=== PATIENT | female | born 1975 ===

== ENCOUNTER 2020-12-15 09:57 | Outpatient (REF) | payer BC, SELFPAY ==
--- NOTE | ~2020-12-15 | XR_ITS ---
EXAMINATION: XR CHEST CLINICAL INFORMATION: Preprocedural evaluation COMPARISON: None TECHNIQUE: 2 views of the chest were obtained. FINDINGS: No significant abnormality is noted involving the heart, lungs, mediastinum, bony thorax or soft tissues. XR/XR chest 2V IMPRESSION: Unremarkable chest examination.
[2020-12-15 11:15] LABS: MANUAL DIFF FLAG NO
[2020-12-15 11:28] LABS: Basophils Percent Auto 0.8 % (0-2); Eosinophils Percent Auto 0.4 % (0-4); Hematocrit 46.3 % (37-47); Hemoglobin 14.9 g/dl (12.0-16.0); Imm Gran Abs Auto 0.01 X10*3/uL (0.00-0.03); Imm Gran Pct Auto 0.2 % (0.0-0.4); Lymphocytes Absolute Auto 1.7 X10*3/uL (1.2-4.9); Lymphocytes Percent Auto 34.7 % (20-40); Mean Corpuscular HGB Conc 32.2 g/dl (31.0-35.0); Mean Corpuscular Hemoglobin 31.2 pg (27.0-33.0); Mean Corpuscular Volume 97.1 fL (80-98); Mean Platelet Volume 12.4 fL (9.4-12.3); Monocytes Absolute Auto 0.4 X10*3/uL (0.1-1.2); Monocytes Percent Auto 7.8 % (2-11); Neutrophils Absolute Auto 2.8 X10*3/uL (2.0-8.3); Neutrophils Percent Auto 56.1 % (45-73); Platelet Count 184 X10*3/uL (160-400); Red Blood Count 4.77 X10*6/uL (4.20-5.50); Red Cell Distribution Width 12.2 % (11.0-16.0)
[2020-12-15 11:37] LABS: Prothrombin Time 11.8 SEC (10.8-13.0)
[2020-12-15 11:38] LABS: Glucose Urine UA NEG (NEG); Leukocyte Esterase Urine NEG (NEG); Nitrite Urine NEG (NEG); Urine Blood NEG (NEG); Urine Ketones NEG (NEG); Urine Protein NEG (NEG-TRACE)
[2020-12-15 11:39] LABS: Partial Thromboplastin Time 32.4 SEC (24.1-38.0)
[2020-12-15 11:42] LABS: Appearance Urine CLEAR; Color Urine YELLOW
[2020-12-15 11:59] LABS: HCG Quantitative < 2 mIU/mL
[2020-12-15 12:20] LABS: Alanine Aminotransferase 26 U/L (0-31); Albumin Level 4.6 g/dL (3.5-5.0); Alkaline Phosphatase 55 U/L (39-117); Anion Gap 12 (12-20); Aspartate Amino Transferase 27 U/L (5-31); Bilirubin Total 0.8 mg/dL (0.0-1.0); Blood Urea Nitrogen 16 mg/dL (9-16); Calcium 9.1 mg/dL (8.4-10.2); Carbon Dioxide 27 mmol/L (22-29); Chloride 105 mmol/L (96-108); Estimated Glomerular Filt Rate > 60; Glucose Random 85 mg/dL (60-115); Potassium 4.4 mmol/L (3.3-5.1); Sodium 140 mmol/L (135-145); Total Protein 6.9 g/dL (6.5-8.0)
[2020-12-15 12:34] LABS: Squamous Epithelial Cell Urine 2+ /LPF; WBC Urine 0-2 /HPF (0-4)
[2020-12-16 08:44] LABS: HIV AB/AG Nonreactive (Nonreactive); HIV Num 1 0.04 S/CO (0.00-0.99)
== END 2020-12-15 09:58 | disposition home or self-care (01) ==
LOC: HO.HMGCX 09:57
PROVIDERS: PCP Nurse Practitioner Family; Visit Provider Nurse Practitioner Family
DX: Z01.818 Encounter for other preprocedural examination (principal)
CPT/HCPCS: 36415; 71046; 80053; 81001; 84702; 85025; 85610; 85730; 87389

== ENCOUNTER 2020-12-19 14:46 | Outpatient (REF) | payer BC, SELFPAY ==
--- NOTE | ~2020-12-19 | MM_ITS ---
EXAMINATION: MM SCREENING DIGITAL BREAST TOMOSYNTHESIS, BILATERAL CLINICAL INFORMATION: Screening. Asymptomatic. The lifetime risk of breast cancer based on the Tyrer-Cuzick Model is 8%. COMPARISON: Mammography: 05/01/2019; outside mammography 05/01/2017, 04/02/2016 ([facility]). TECHNIQUE: Digital breast tomosynthesis is performed in both the craniocaudal and mediolateral oblique views along with computer-aided detection (CAD). Synthesized 2D images are generated from the tomosynthesis. Additional right exaggerated CC view is provided. FINDINGS: There are scattered areas of fibroglandular density (ACR BI-RADS breast composition Category b). There are no significant masses, abnormal calcifications, or other abnormalities. Parenchymal pattern is similar to prior studies. No significant changes. MM/MM tomosynthesis screening BI IMPRESSION: No mammographic evidence of malignancy. ASSESSMENT: BI-RADS 1: Negative RECOMMENDATION: Routine annual mammography screening. This patient's information was entered into a reminder system with a target due date for their next mammogram.
== END 2020-12-19 14:47 | disposition home or self-care (01) ==
LOC: HO.MAMMO 14:46
PROVIDERS: Visit Provider Nurse Practitioner Family
DX: Z12.31 Encounter for screening mammogram for malignant neoplasm of breast (principal)
CPT/HCPCS: 77063; 77067

== ENCOUNTER 2021-07-27 09:05 | Outpatient (REF) | payer BC, SELFPAY ==
--- NOTE | 2021-07-27 09:14 | EMG_ITS ---
Bilateral median and ulnar motor and sensory studies were performed. Bilateral radial sensory studies were performed and paraspinal muscles were tested with needle. IMPRESSION: 1. [id number] bilateral median neuropathy across carpal tunnel. 2. Mild bilateral ulnar neuropathy across cubital tunnel. MD JASBIR Cortés/BRIAN / [id number]
== END 2021-07-27 09:06 | disposition home or self-care (01) ==
LOC: HO.NEURO 09:05
PROVIDERS: PCP Nurse Practitioner Family; Visit Provider Nurse Practitioner Family
DX: G56.00 Carpal tunnel syndrome, unspecified upper limb (principal)
CPT/HCPCS: 95886; 95911

== ENCOUNTER → 2021-08-29 14:16 | Outpatient (BNVA) | payer BC, SELFPAY | PROVIDERS: PCP Nurse Practitioner Family; Visit Provider Orthopaedic Surgery | DX: G56.03 Carpal tunnel syndrome, bilateral upper limbs (principal) | CPT/HCPCS: J1100 ==

== ENCOUNTER 2023-08-22 13:42 | Outpatient (AMB) | payer OTHER, SELFPAY ==
--- NOTE | 2023-08-22 13:49 | AM.OFFWIN_ITS ---
Intake Vital Signs 08/22/23 14:06 Height 5 ft 2 in Weight 150 lb BMI 27.4 BP 108/60 Blood Pressure Location Rt brachial Position Sitting Pulse 77 Pulse Source Pulse Oximeter Temp 98.4 F Temp Source Oral Pulse Oximetry (%) 97 Oxygen Delivery Method Room Air Intake Visit Reasons: EP sinus headache chills over a month Intake Note: Pt is here c/o feeling sick for one month. Pt states she has had on and off fevers for two weeks. Pt also has c/o runny nose, and headache. Patient Tobacco Use Status: Never used Tobacco Allergies No Known Allergies Allergy (Verified 08/22/23 13:49) Medication List - Last Reconciled 08/22/23 by Tarsha Earl NP cetirizine (Zyrtec) 10 mg PO DAILY PRN fluticasone propionate 50 mcg/actuation (Flonase Allergy Relief) 1 spray intranasal BID Do you need a note to return to daycare/school/sports/work: No HPI HPI Comments History of Present Illness Details 48 y/o female patient who presents to [facility] in clinic with c/o URI symptoms x 2 months. Symptoms have been on/off. Reports nasal congestion and sinus headaches. Denies fevers, chills, nausea or vomiting. Reports good appetite. Denies SOB, Chest pains or wheezing. She has been taking Tamiflu OTC with no relief. 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 Review of Systems Const All systems reviewed & are unremarkable except as noted in HPI and below Physical Exam Vital Signs: Last Vital Signs Temp 98.4 F 08/22/23 14:06 Pulse 77 08/22/23 14:06 BP 108/60 08/22/23 14:06 Pulse Ox 97 08/22/23 14:06 Oxygen Delivery Method Room Air 08/22/23 14:06 BMI result Body Mass Index 27.4 Const General: comfortable and no acute distress HEENT Head: Yes normal to inspection and Yes normocephalic Ears: external ears normal and TM's normal bilaterally General nose exam: Abnormal mucous membranes and turbinates present boggy and erythematous and Nasal discharge present Face and sinus: Yes sinuses nontender Mouth: oropharynx normal and moist mucous membranes Throat: Yes posterior oropharynx normal and Yes uvula midline Resp Effort & Inspection: normal respiratory effort Auscultation: clear to auscultation bilaterally Cardio Rate: regular rate Rhythm: regular rhythm Assessment & Plan Assessment & Plan (1) Allergic rhinitis: Code(s): J30.9 - Allergic rhinitis, unspecified Qualifiers: Allergic rhinitis seasonality: seasonal Allergic rhinitis trigger: unspecified Qualified Code(s): J30.2 - Other seasonal allergic rhinitis Plan: - Take medications as prescribed. - Avoid resp triggers. Medications: New fluticasone propionate 50 mcg/actuation (Flonase Allergy Relief) Administer 1 spray into each nostril twice a day 1 spray intranasal BID 16 grams 0RF J30.2 - Other seasonal allergic rhinitis cetirizine (Zyrtec) 10 mg PO DAILY PRN 30 tabs 0RF allergy symptoms J30.2 - Other seasonal allergic rhinitis Coding Level of Care Code Est Pt Level 3 (88435) Diagnoses Seasonal allergic rhinitis, unspecified trigger J30.2 Allergic rhinitis seasonality: seasonal Allergic rhinitis trigger: unspecified Time Spent (min) 15
[2023-08-22 14:06] VITALS: BP 108/60; PULSE 77; TEMP 36.9; O2SAT 97; BMI 27.4
== END 2023-08-22 14:18 | disposition home or self-care (01) ==
PROVIDERS: PCP Nurse Practitioner Family; Visit Provider Nurse Practitioner Family
DX: J30.2 Other seasonal allergic rhinitis (principal)
CPT/HCPCS: 99213

== ENCOUNTER 2023-10-16 14:35 | Outpatient (AMB) | payer OTHER, SELFPAY ==
--- NOTE | 2023-10-16 14:48 | A.OFFVIS_ITS ---
Intake Vital Signs 10/16/23 14:52 Height 5 ft 2 in Weight 150 lb BMI 27.4 Handedness Right Intake Visit Reasons: OV-B/L hand CTS injection-last injection 08/29/21 Intake Note: Aaron 48 yr old right hand dominant female presents today for a follow up visit for bilateral hand CTS s/p left hand CTS injection from 08/29/21. States injection gave her 1 year + of relief. Patient would like to discuss about repeating the injections and getting some medication to helo with the numbness. She expresses that her left hand is worse than the right. EMG done in 2021. Allergies No Known Allergies Allergy (Verified 10/16/23 14:51) HPI OV-B/L hand CTS injection-last injection 08/29/21 HPI Details Aaron is a 48 year old right hand dominant woman who returns to discuss her bilateral carpal tunnel syndrome. She complains of numbness in the thumb, index, and middle fingers bilaterally. Her numbness is constant in her left thumb, and intermittent but daily in the left index & middle fingers, as well as the thumb, index, and middle fingers of her right hand. She denies any small finger numbness. She was last seen on 08/29/21 and received a left carpal tunnel injection, which she says gave her good relief for 1+ years. 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 Review of Systems Const All systems reviewed & are unremarkable except as noted in HPI and below Physical Exam Vital Signs: BMI result Body Mass Index 27.4 Const General: no acute distress and alert Orientation/consciousness: patient oriented x3 Neuro General: patient oriented x3 Extrem Other: Evaluation of Bilateral Upper Extremity: The patient is alert, oriented, and in no acute distress Neuro: Dense numbness in the left thumb, normal sensation in the left index & middle fingers today in clinic Normal sensation in the median nerve distribution of the right side today in clinic Normal sensation in the ulnar nerve distribution bilaterally today in clinic No thenar or intrinsic wasting Good APB muscle belly firing and good finger cross Vascular: Cap refill brisk ROM: She can make a fist and extend all her digits No locking or catching Nerve Conduction Study: IMPRESSION: 1. [id number] bilateral median neuropathy across carpal tunnel. 2. Mild bilateral ulnar neuropathy across cubital tunnel. Taniya Eisenberg MD 07/27/2021 Psych Appearance: grossly normal Affect: normal affect Attitude: cooperative Assessment & Plan Assessment & Plan (1) Carpal tunnel syndrome of left wrist: Code(s): G56.02 - Carpal tunnel syndrome, left upper limb (2) Carpal tunnel syndrome of right wrist: Code(s): G56.01 - Carpal tunnel syndrome, right upper limb (3) Cubital tunnel syndrome on left: Code(s): G56.22 - Lesion of ulnar nerve, left upper limb (4) Cubital tunnel syndrome on right: Code(s): G56.21 - Lesion of ulnar nerve, right upper limb Plan Assessment & Plan: 1. Left carpal tunnel syndrome, mild-moderate, S/P injection Date of injection: 08/29/21 With dense numbness in the thumb Symptoms intermittent, but daily, worse at night in the index & middle fingers I educated her about this condition I discussed operative and non-operative treatment options I explained that I believe she needs surgery rather than an injection. The patient would like to proceed with surgery, beginning with the left hand The risks and benefits of operative treatment were discussed with the patient and the patient wishes to proceed with surgery. These risks include, but are not limited to risk of damage to blood vessels, nerves, tendons, infection, recurrence, incomplete relief of preoperative symptoms, persistent pain, possible need for further surgery and the risks associated with regional blocks and anesthesia. The plan is to take the patient to the operating room sometime in the next few weeks for the following procedures: 1. Left carpal tunnel release, under local All of the preoperative paperwork including the consent was reviewed today. All the patient's questions were answered. The patient understands that they will be contacted by our information security manager soon to schedule this procedure. 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 She denies Diabetes, blood thinners, asthma, heart, lung, kidney issues 2. Right carpal tunnel syndrome, mild-moderate Symptoms intermittent, but daily, worse at night 3. Left cubital tunnel syndrome, mild 4. Right cubital tunnel syndrome, mild No complaints at this time Scribed for Kimberli Rodriguez MD by David Miller, medical transcription radiology, on 10/16/23 at 3:00 PM, EST. Coding Level of Care Code Est Pt Level 4 (02931) Diagnoses Carpal tunnel syndrome of left wrist G56.02 Carpal tunnel syndrome of right wrist G56.01 Cubital tunnel syndrome on left G56.22 Cubital tunnel syndrome on right G56.21
[2023-10-16 14:52] VITALS: BMI 27.4
== END 2023-10-16 15:16 | disposition home or self-care (01) ==
PROVIDERS: PCP Nurse Practitioner Family; Visit Provider Orthopaedic Surgery
DX: G56.03 Carpal tunnel syndrome, bilateral upper limbs (principal); G56.23 Lesion of ulnar nerve, bilateral upper limbs
CPT/HCPCS: 99214

== ENCOUNTER → 2023-10-16 14:35 | Outpatient (BNVA) | payer OTHER, SELFPAY | PROVIDERS: PCP Nurse Practitioner Family; Visit Provider Orthopaedic Surgery ==

== ENCOUNTER 2023-11-20 08:07 | Outpatient (AMB) | payer OTHER, SELFPAY ==
--- NOTE | 2023-11-20 08:08 | MHC.PC.OV ---
Vital Signs 11/20/23 08:13 Height 5 ft 2 in Weight 156 lb BMI 28.5 BP 118/80 Blood Pressure Location Lt brachial Position Sitting Pulse 78 Pulse Source Pulse Oximeter Pulse Oximetry (%) 98 Oxygen Delivery Method Room Air Intake Visit Reasons: Numbness, joints ache, cramps Intake Note: Patient here to discuss body pain, she states bilat hands, arm, leg and feet. Allergies No Known Allergies Allergy (Verified 11/20/23 08:14) Medication List - Last Reconciled 11/20/23 by RADHA Mcginnis No Known Home Meds Tobacco use date assessed: 11/20/23 Dental Screening Dental Screen Date: 11/20/23 Did you have a dental visit in the last 12 months?: Yes Did you have a dental problem in the last 6 months where you did not have access to dental care?: No Was dental information given to patient?: Patient has dentist HPI Numbness, joints ache, cramps HPI Details Pt c/o cervical neck pain. She also reports pain and numbness down her LUE. Pt has a hx of herniated discs.2019 MRI: Hx of spinal cord compression at C6, left paracentral disc herniation with impinging on nerve roots at C5-6 and C6-7. She was told she was a surgical candidate but she did not want surgery. She is reconsidering this, seeing symptoms are getting worse (describing radiculopathy down LUE). She has received epidural injections in the past which helped somewhat. PT did not help. Will order MRI. Will send gabapentin. She is seeing ortho and is having surgery in April for carpal tunnel. 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 Cognitive needs: No Hearing needs: No Vision needs: Yes Questionnaire PHQ-9 Over the last 2 weeks, how often have you been bothered by any of the following problems? 1. Little interest or pleasure in doing things: more than half the days 2. Feeling down, depressed, or hopeless: more than half the days 3. Trouble falling or staying asleep, or sleeping too much: nearly every day 4. Feeling tired or having little energy: more than half the days 5. Poor appetite or overeating: more than half the days 6. Feeling bad about yourself - or that you are a failure or have let yourself or your family down: several days 7. Trouble concentrating on things, such as reading the newspaper or watching television: several days 8. Moving or speaking so slowly that other people could have noticed. Or the opposite - being so fidgety or restless that you have been moving around a lot more than usual: several days 9. Thoughts that you would be better off or of hurting yourself in some way: not at all Total score: 14 Depression Screening Interpretation: Positive (following up with pt about this, seeing pt for follow up win 2 months) Depression Screening Follow-up: Existing condition Depression Screening Done: Yes 31560 - PHQ-9 Billing: Yes Source: Developed by Drs. Juno Alford, Nicol Dunn, Ervin Rashid and colleagues, with an educational pino from [employer]. Thrive Questionnaire Date Thrive assessed: 11/20/23 I am a: Patient What is your living situation today?: I have a steady place to live Within the past 12 months, did the food you bought not last and you didn't have the money to get more?: Sometimes True Within the past 12 months, did you worry whether your food would run out before you got money to buy more?: Sometimes True Do you have trouble paying for medicines?: No Do you have trouble getting transportation to medical appointments?: No Do you have trouble paying your heating and electricity bill?: Yes Do you have trouble taking care of your child, family member or friend?: Yes Do you have trouble with day-to-day activities such as bathing, preparing meals, shopping, managing finances, etc.?: No Are you currently unemployed and looking for a job?: No Are you interested in more education?: No Currently or been in a relationship where the following occur: I choose not to answer this question THRIVE Score: 3 AUDIT C Alcohol Use Questionnaire (AUDIT-C) 1. How often do you have a drink containing alcohol?: Monthly or less 2. How many drinks containing alcohol do you have on a typical day when you are drinking?: 1 or 2 3. How often do you have six or more drinks on one occasion?: Never Total Score: 1 Score Reviewed/Action Taken: No TRACE-7 AMB Questionnaire TRACE-7 Date TRACE - 7 assessed: 11/20/23 Feeling nervous, anxious, or on edge: 0 = Not at all Not being able to stop or control worryin = Several days Worrying too much about different things: 1 = Several days Trouble relaxin = More than half the days Being so restless that it is hard to sit still: 2 = More than half the days Becoming easily annoyed or irritable: 2 = More than half the days Feeling afraid as if something awful might happen: 1 = Several days Total TRACE-7 score (0-4 normal; 5-9 mild; 10-14 moderate; 15-21 severe): 9 Source: Developed by Drs. Juno Alford, Nicol Dunn, Ervin Rashid and colleagues, with an educational pino from [employer]. TRACE-7 Assessment Billing TRACE-7 Assessment Tool: TRACE-7 Assessment 33786 Review of Systems Const Reports as per HPI Physical exam (Primary Care) Vital Signs: Last Vital Signs Pulse 78 11/20/23 08:13 BP 118/80 11/20/23 08:13 Pulse Ox 98 11/20/23 08:13 Oxygen Delivery Method Room Air 11/20/23 08:13 BMI result Body Mass Index 28.5 Tobacco/Smoking Status: Tobacco use Status Tobacco use date assessed 11/20/23 11/20/23 08:17 Patient Tobacco Use Status Never used Tobacco 11/20/23 08:10 e-Cigarette/Vaping Use Never Used 11/20/23 08:17 Depression Screening Interpretation: Positive (following up with pt about this, seeing pt for follow up win 2 months) Depression Screening Follow-up: Existing condition Currently or been in a relationship where the following occur: I choose not to answer this question Const General: cooperative Orientation/consciousness: patient oriented x3 Resp Effort & Inspection: normal respiratory effort Auscultation: clear to auscultation bilaterally Cardio Rate: regular rate Rhythm: regular rhythm Heart sounds: S1 normal heart sound present and S2 normal heart sound present Back/Spine/Pelvis Other: + spurlings, cervical neck pain exacerbated with turning head side to side and neck flexion, radiculopathy down LUE. Neuro General: patient oriented x3 Psych Appearance: grossly normal Mental Status: mental status grossly normal Speech and movement: Normal speech and movement present Affect: normal affect Attitude: cooperative Thought process: Normal thought process present Thought content: Normal thought content present Insight: Good insight present (Psych) Judgement: Good judgement present (Psych) Assessment and Plan Assessment & Plan (1) Herniated disc, cervical: Code(s): M50.20 - Other cervical disc displacement, unspecified cervical region Plan: MRI ordered, sending gabapentin, will refer to neuro-surg post MRI (2) Positive screening for depression on 9-item Patient Health Questionnaire (PHQ-9): Code(s): Z13.31 - Encounter for screening for depression Plan: following up with pt concerning + findings. Will reach out to pt (message sent to concerning findings), denied any si or hi Plan The patient agreed to the use of a medical claims manager for this encounter. Scribed for LETI Buck-KYLER by Haley Hutchinson medical claims manager, on 11/20/2023 at 08:20 EST. Orders: Orders MR cervical spine wo con Today M50.20 - Other cervical disc displacement, unspecified cervical region Medications: New gabapentin 300 mg PO BEDTIME 30 caps 2RF Coding Level of Care Code Est Pt Level 3 (75747) Diagnoses Herniated disc, cervical M50.20 Positive screening for depression on 9-item Patient Health Questionnaire (PHQ-9) Z13.31 Additional Codes TRACE-7 Assessment Billing - TRACE-7 Assessment Tool: TRACE-7 Assessment 02739 ([id number])
[2023-11-20 08:13] VITALS: BP 118/80; PULSE 78; O2SAT 98; BMI 28.5
== END 2023-11-20 08:55 | disposition home or self-care (01) ==
PROVIDERS: PCP Nurse Practitioner Family; Visit Provider Nurse Practitioner Family
DX: M50.20 Other cervical disc displacement, unspecified cervical region (principal); Z13.31 Encounter for screening for depression
CPT/HCPCS: 99213

== ENCOUNTER 2024-01-24 09:00 | Outpatient (RCR) | payer OTHER, SELFPAY ==
--- NOTE | 2023-12-23 10:08 | MHC.PT.EP ---
[facility] [place] Office [place] Office [place] Office [address] Keron Burkett [address] [phone] F: [phone] F: [phone] F: [phone] F: [phone] Physical Therapy Plan of Care Date of Evaluation: 12/23/23 Date of Surgery: Diagnosis: other cervical disc displacement Assessment: Patient is a 48 year old R handed female who presents with s/s consistent with neck pain, cervical disc displacement. 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 Patient past medical history includes lumbar disc pathology as well. Current impairments include pain, posture, ROM, strength, activity tolerance and functional mobility. Functional limitations include decreased ability to sleep, reach, lift, push, pull, work on computer and cook. Patient is motivated with good rehab potential. Skilled PT will address impairments and functional limitations in order to achieve goals. Frequency and Duration: The patient will be seen 2x/week for 5 weeks Short Term Goals: I with HEP- 2 weeks midline posture - 3 weeks C-spine AROM rotation to 55 - 3 weeks s/s centralized intermittently - 3 weeks Dental Specialist Goals: s/s centralized completely - 5 weeks NPDI 20% or better - 5 weeks Max pain with ADLs - 3/10 - 5 weeks Able to sleep without modifications - 5 weeks Treatment Plan: Modalities to reduce pain, spasms and effusion. Manual therapy to restore motion and function. Therapeutic exercise to improve strength and flexibility. Neuromuscular re-education for posture and balance. Therapeutic activities to return to functional activities of daily living. Electronically signed by: Topher Vickers, PT Please sign and return to therapist. Thank you for your referral.
--- NOTE | 2024-04-15 10:55 | MHC.PT.DC ---
[facility] [place] [facility] [address] Keron Burkett [address] [phone] F: [phone] F: [phone] F: [phone] F: [phone] Physical Therapy Discharge Report Diagnosis: other cervical disc displacement Date of Surgery: Date of Evaluation: 12/23/23 Date of Discharge: 03/06/24 Treatments to Date: 7 Cancellations to Date: No Shows to Date: Discharge Status: Patient Elected to Stop Recommend MD Follow-up Discharge Summary: 01/27/24: pt has been unable to achieve sustained progress on s/s especially down into L elbow. Pain is the same and postural changes have been stubborn. we are going to hold on PT at this time and refer back to doc to discern next best steps. 01/14/24: pt with reduced TTP along medial border. to travel to [place] and return for follow up. 01/08/24: reduced tissue tension but drying oven tender upon palpation. good carryover. we will continue to address medial border attachments. 01/06/24: pt progressing well with skilled PT. reduced s/s into neck and L shoulder. assess response to STM to scap attachments. 01/02/24: pt progressing well with skilled PT. improved postural awareness. some tenderness on medial border of L scap we will address next visit. 12/31/23: pt progressing well with skilled PT. reduced tissue tension. we will progress postural intervention NV. Patient is a 48 year old R handed female who presents with s/s consistent with neck pain, cervical disc displacement. 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 Patient past medical history includes lumbar disc pathology as well. Current impairments include pain, posture, ROM, strength, activity tolerance and functional mobility. Functional limitations include decreased ability to sleep, reach, lift, push, pull, work on computer and cook. Patient is motivated with good rehab potential. Skilled PT will address impairments and functional limitations in order to achieve goals. Electronically signed by: Topher Vickers, PT Please sign and return to therapist. Thank you for your referral.
== END 2024-04-15 10:56 | disposition home or self-care (01) ==
LOC: HO.PTCHIC 09:00
PROVIDERS: PCP Nurse Practitioner Family; Visit Provider Nurse Practitioner Family
DX: M50.20 Other cervical disc displacement, unspecified cervical region (principal)
CPT/HCPCS: 97110; 97140; 97162

== ENCOUNTER 2024-03-23 14:49 | Outpatient (AMB) | payer OTHER, SELFPAY ==
--- NOTE | 2024-03-23 14:57 | MHC.PC.OV ---
Vital Signs 03/23/24 15:02 Height 5 ft 2 in Weight 150 lb 6 oz BMI 27.5 BP 118/72 Blood Pressure Location Rt brachial Pulse 68 Pulse Source Pulse Oximeter Pulse Oximetry (%) 98 Oxygen Delivery Method Room Air Intake Visit Reasons: PE Intake Note: pt is here for physical exam Accompanied by: Self / Same As Patient Allergies No Known Allergies Allergy (Verified 03/23/24 15:26) Medication List - Last Reconciled 03/23/24 by RADHA Mcginnis gabapentin 300 mg PO BEDTIME Tobacco use date assessed: 11/20/23 Dental Screening Dental Screen Date: 11/20/23 HPI PE HPI Details Pt is here for a PE. Will order labs. Due for mammo, will order. Due for colon screen, will refer to GI. Pt does not have a voicer, hx of partial hysterectomy. Will refer for possible swab of vaginal cuff. 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 Cognitive needs: No Hearing needs: No Vision needs: Yes Questionnaire PHQ-9 Over the last 2 weeks, how often have you been bothered by any of the following problems? 1. Little interest or pleasure in doing things: nearly every day 2. Feeling down, depressed, or hopeless: more than half the days 3. Trouble falling or staying asleep, or sleeping too much: more than half the days 4. Feeling tired or having little energy: nearly every day 5. Poor appetite or overeating: nearly every day 6. Feeling bad about yourself - or that you are a failure or have let yourself or your family down: not at all 7. Trouble concentrating on things, such as reading the newspaper or watching television: not at all 8. Moving or speaking so slowly that other people could have noticed. Or the opposite - being so fidgety or restless that you have been moving around a lot more than usual: not at all 9. Thoughts that you would be better off or of hurting yourself in some way: not at all Total score: 13 Depression Screening Interpretation: Positive (denies any SI or HI, will have BH reach out to pt) Depression Screening Follow-up: Existing condition Depression Screening Done: Yes 07405 - PHQ-9 Billing: Yes Source: Developed by Drs. Juno Alford, Nicol Dunn, Ervin Rashid and colleagues, with an educational pino from [employer]. Thrive Questionnaire Date Thrive assessed: 03/23/24 I am a: Patient What is your living situation today?: I have a steady place to live Within the past 12 months, did the food you bought not last and you didn't have the money to get more?: I choose not to answer this question Within the past 12 months, did you worry whether your food would run out before you got money to buy more?: Sometimes True Do you have trouble paying for medicines?: No Do you have trouble getting transportation to medical appointments?: No Do you have trouble paying your heating and electricity bill?: I choose not to answer this question Do you have trouble taking care of your child, family member or friend?: No Do you have trouble with day-to-day activities such as bathing, preparing meals, shopping, managing finances, etc.?: No Are you interested in more education?: I choose not to answer this question Please select the resources that you would like help with: None Currently or been in a relationship where the following occur: I choose not to answer THRIVE Score: 1 AUDIT C Alcohol Use Questionnaire (AUDIT-C) 1. How often do you have a drink containing alcohol?: Never 3. How often do you have six or more drinks on one occasion?: Never Total Score: 0 Score Reviewed/Action Taken: Yes TRACE-7 AMB Questionnaire TRACE-7 Date TRACE - 7 assessed: 03/23/24 Feeling nervous, anxious, or on edge: 3 = Nearly every day Not being able to stop or control worryin = More than half the days Worrying too much about different things: 2 = More than half the days Trouble relaxin = More than half the days Being so restless that it is hard to sit still: 3 = Nearly every day Becoming easily annoyed or irritable: 3 = Nearly every day Feeling afraid as if something awful might happen: 3 = Nearly every day Total TRACE-7 score (0-4 normal; 5-9 mild; 10-14 moderate; 15-21 severe): 18 Source: Developed by Drs. Juno Alford, Nicol Dunn, Ervin Rashid and colleagues, with an educational pino from [employer]. TRACE-7 Assessment Billing TRACE-7 Assessment Tool: TRACE-7 Assessment 39901 Review of Systems Const Denies chills and Denies fever(s) Eyes Denies blurry vision ENT Denies vertigo, Denies dizziness and Denies sore throat Card Denies chest pain at rest, Denies chest pain with activity, Denies diaphoresis, Denies dyspnea and Denies dyspnea on exertion Resp Denies cough, Denies dyspnea, Denies dyspnea on exertion and Denies wheezing GI Denies abdominal pain, Denies melena, Denies hematochezia, Denies constipation, Denies diarrhea and Denies loose stools Denies hematuria Musc Denies numbness and Denies tingling Skin/Breast Denies lesions Neuro Denies vertigo, Denies dizziness, Denies numbness and Denies tingling Psych Denies anxiety, Denies depression, Denies homicidal ideation, Denies suicidal ideation and Denies other (substance abuse) Aller/Immun Denies wheezing Physical exam (Primary Care) Vital Signs: Last Vital Signs Pulse 68 03/23/24 15:02 BP 118/72 03/23/24 15:02 Pulse Ox 98 03/23/24 15:02 Oxygen Delivery Method Room Air 03/23/24 15:02 BMI result Body Mass Index 27.5 Tobacco/Smoking Status: Tobacco use Status Tobacco use date assessed 11/20/23 03/23/24 14:57 Patient Tobacco Use Status Never used Tobacco 03/23/24 14:57 e-Cigarette/Vaping Use Never Used 03/23/24 14:57 PHQ-9: PHQ-9 Score PHQ-9: Total score 13 03/23/24 15:12 Depression Screening Interpretation: Positive (denies any SI or HI, will have BH reach out to pt) Depression Screening Follow-up: Existing condition Thrive Assessment: Date of Thrive Assessment Date Thrive assessed 03/23/24 03/23/24 15:04 Currently or been in a relationship where the following occur: I choose not to answer Const General: cooperative Nutritional Appearance: well nourished Orientation/consciousness: patient oriented x3 HENMT Head: Yes normal to inspection, Yes normocephalic and Yes atraumatic Ears: TM's normal bilaterally Eyes General: appearance normal, both eyes and all related structures Alignment and Position: alignment normal and position normal Neck Neck: Yes normal visual inspection, Yes no lymphadenopathy and Yes supple Resp Effort & Inspection: normal respiratory effort Auscultation: clear to auscultation bilaterally Cardio Rate: regular rate Rhythm: regular rhythm Heart sounds: S1 normal heart sound present, S2 normal heart sound present and no murmurs GI Palpation (GI): Soft to palpation and nontender Auscultation: normal bowel sounds Skin Rashes: no rashes Neuro General: patient oriented x3, moves all extremities, no focal motor deficits and deep tendon reflexes 2+ bilaterally Romberg Test: Negative Psych Appearance: grossly normal Mental Status: mental status grossly normal Speech and movement: Normal speech and movement present Affect: normal affect Attitude: cooperative Thought process: Normal thought process present Thought content: Normal thought content present Insight: Good insight present (Psych) Judgement: Good judgement present (Psych) Assessment and Plan Assessment & Plan (1) Screening for colon cancer: Code(s): Z12.11 - Encounter for screening for malignant neoplasm of colon Plan: Referred to GI (2) Physical exam: Code(s): Z00.00 - Encounter for general adult medical examination without abnormal findings Plan: Labs ordered (3) Screening for cervical cancer: Comment: partial hysterectomy (? swab cuff) Code(s): Z12.4 - Encounter for screening for malignant neoplasm of cervix Plan: Referred to voicer Plan The patient agreed to the use of a nuclear medicine medical director for this encounter. Scribed for RADHA Buck by daysi Escudero scribe, on 03/23/2024 at 15:10 EST. Orders: Orders MM screening mammo BI Today Z12.31 - Encounter for screening mammogram for malignant neoplasm of breast Complete Blood Count Auto Diff Today Z00.00 - Encounter for general adult medical examination without abnormal findings TSH reflex Free T4 Today Z00.00 - Encounter for general adult medical examination without abnormal findings Comprehensive [place]. 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
[2024-03-23 15:02] VITALS: BP 118/72; PULSE 68; O2SAT 98; BMI 27.5
== END 2024-03-23 16:30 | disposition home or self-care (01) ==
PROVIDERS: PCP Nurse Practitioner Family; Visit Provider Nurse Practitioner Family
DX: Z12.11 Encounter for screening for malignant neoplasm of colon (principal); Z00.00 Encounter for general adult medical examination without abnormal findings; Z12.4 Encounter for screening for malignant neoplasm of cervix

== ENCOUNTER → 2024-03-23 14:49 | Outpatient (BNVA) | payer OTHER, SELFPAY | PROVIDERS: PCP Nurse Practitioner Family; Visit Provider Nurse Practitioner Family | DX: Z00.00 Encounter for general adult medical examination without abnormal findings (principal) | CPT/HCPCS: 96127 ==

== ENCOUNTER 2024-03-28 07:17 | Outpatient (REF) | payer OTHER, SELFPAY ==
[2024-03-28 11:21] LABS: MANUAL DIFF FLAG NO
[2024-03-28 11:27] LABS: Basophils Absolute Auto 0.1 X10*3/uL (0.0-0.2); Basophils Percent Auto 0.9 % (0-2); Eosinophils Percent Auto 0.4 % (0-4); Hematocrit 44.6 % (37.0-47.0); Hemoglobin 14.4 g/dl (12.0-16.0); Imm Gran Abs Auto 0.01 X10*3/uL (0.00-0.03); Imm Gran Pct Auto 0.2 % (0.0-0.4); Lymphocytes Absolute Auto 1.7 X10*3/uL (1.2-4.9); Lymphocytes Percent Auto 30.1 % (20-40); Mean Corpuscular HGB Conc 32.3 g/dl (31.0-35.0); Mean Corpuscular Hemoglobin 31.7 pg (27.0-33.0); Mean Corpuscular Volume 98.2 fL (80.0-98.0); Mean Platelet Volume 12.4 fL (9.4-12.3); Monocytes Absolute Auto 0.5 X10*3/uL (0.1-1.2); Monocytes Percent Auto 8.5 % (2-11); Neutrophils Absolute Auto 3.4 x10*3/uL (2.0-8.3); Neutrophils Percent Auto 59.9 % (45-73); Platelet Count 229 X10*3/uL (160-400); Red Blood Count 4.54 X10*6/uL (4.20-5.50); Red Cell Distribution Width 12.4 % (11.0-16.0); White Blood Count 5.6 X10*3/uL (4.8-10.8)
[2024-03-28 11:59] LABS: Alanine Aminotransferase 18 U/L (0-31); Albumin Level 4.3 g/dL (3.5-5.0); Alkaline Phosphatase 51 U/L (39-117); Anion Gap 12 (12-20); Aspartate Amino Transferase 22 U/L (5-31); Bilirubin Total 0.6 mg/dL (0.0-1.0); Blood Urea Nitrogen 15 mg/dL (9-16); Calcium 8.8 mg/dL (8.4-10.2); Carbon Dioxide 29 mmol/L (22-29); Chloride 107 mmol/L (96-108); Cholesterol 194 mg/dL (<200); Estimated Glomerular Filt Rate 52; Glucose Fasting 86 mg/dL (60-99); HDL Cholesterol 54 mg/dL (>40); LDL Cholesterol Calculated 130 mg/dL (<100); Potassium 3.6 mmol/L (3.3-5.1); Sodium 144 mmol/L (135-145); Total Protein 6.7 g/dL (6.5-8.0); Triglycerides 54 mg/dL (<150)
[2024-03-28 12:03] LABS: TSH reflex Free T4 0.96 uIU/mL (0.32-4.0)
== END 2024-03-28 07:18 | disposition home or self-care (01) ==
LOC: HO.HMGCLDS 07:17
PROVIDERS: PCP Nurse Practitioner Family; Visit Provider Nurse Practitioner Family
DX: Z00.00 Encounter for general adult medical examination without abnormal findings (principal)
CPT/HCPCS: 36415; 80053; 80061; 84443; 85025

== ENCOUNTER 2024-04-15 14:46 | Outpatient (AMB) | payer OTHER, SELFPAY ==
--- NOTE | 2024-04-15 14:50 | A.OFFVIS_ITS ---
Vital Signs 04/15/24 14:51 Height 5 ft 2 in Weight 150 lb 6 oz BMI 27.5 Intake Visit Reasons: Preop LT CTR 04/23/24 AR Allergies No Known Allergies Allergy (Verified 04/15/24 14:52) PFSH Medical History Asthma Herniation of intervertebral disc between L5 and S1 Surgical History History of abdominoplasty Hx of tonsillectomy History of partial hysterectomy Family History Father Diabetes Mother Diabetes Hypertension Social History Housing: House Alcohol intake: current Alcohol intake frequency: holidays/special occasions only Patient Tobacco Use Status: Never used Tobacco e-Cigarette/Vaping Use: Never Used Current occupational status: employed 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 Cognitive needs: No Hearing needs: No Vision needs: Yes Physical Exam Vital Signs: BMI result Body Mass Index 27.5 Coding
--- NOTE | 2024-04-15 14:50 | A.OFFVIS_ITS ---
Vital Signs 04/15/24 14:51 Height 5 ft 2 in Weight 150 lb 6 oz BMI 27.5 Intake Visit Reasons: Preop LT CTR 04/23/24 AR Intake Note: Aaron is a 49 yo female who presents today pre-operatively for left CTR scheduled 04/23/[address] Rodriguez. Consent signed in office. Allergies No Known Allergies Allergy (Verified 04/15/24 14:52) HPI HPI Preop LT CTR 04/23/24 AR: Details: Aaron is a 48 year old right hand dominant woman who returns to discuss her bilateral carpal tunnel syndrome. She complains of numbness in the thumb, index, and middle fingers bilaterally. Her numbness is constant in her left thumb, and intermittent but daily in the left index & middle fingers, as well as the thumb, index, and middle fingers of her right hand. She denies any small finger numbness. 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 Cognitive needs: No Hearing needs: No Vision needs: Yes Physical Exam Vital Signs: BMI result Body Mass Index 27.5 Const General: no acute distress and alert Orientation/consciousness: patient oriented x3 Neuro General: patient oriented x3 Extrem Other: Evaluation of Bilateral Upper Extremity: The patient is alert, oriented, and in no acute distress Neuro: Dense numbness in the left thumb, normal sensation in the left index & mi ddle fingers today in clinic Normal sensation in the median nerve distribution of the right side today in clinic Normal sensation in the ulnar nerve distribution bilaterally today in clinic No thenar or intrinsic wasting Good APB muscle belly firing and good finger cross Vascular: Cap refill brisk ROM: She can make a fist and extend all her digits No locking or catching Nerve Conduction Study: IMPRESSION: 1. [id number] bilateral median neuropathy across carpal tunnel. 2. Mild bilateral ulnar neuropathy across cubital tunnel. Taniya Eisenberg MD 07/27/2021 Psych Appearance: grossly normal Affect: normal affect Attitude: cooperative Assessment & Plan Assessment & Plan (1) Carpal tunnel syndrome of left wrist: Code(s): G56.02 - Carpal tunnel syndrome, left upper limb Category: Medical (2) Carpal tunnel syndrome of right wrist: Code(s): G56.01 - Carpal tunnel syndrome, right upper limb Category: Medical (3) Cubital tunnel syndrome on left: Code(s): G56.22 - Lesion of ulnar nerve, left upper limb Category: Medical (4) Cubital tunnel syndrome on right: Code(s): G56.21 - Lesion of ulnar nerve, right upper limb Category: Medical Plan Assessment & Plan: 1. 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 We discussed the post-operative course with her. We will likely keep her out of work for 4 weeks, and then have her return to work with a 10b weight limit for the following 2 weeks. The risks and benefits of operative treatment were discussed with the patient and the patient wishes to proceed with surgery. These risks include, but are not limited to risk of damage to blood vessels, nerves, tendons, infection, recurrence, incomplete relief of preoperative symptoms, persistent pain, possible need for further surgery and the risks associated with regional blocks and anesthesia. The plan is to take the patient to the operating room sometime on 04/23/24 for the following procedures: 1. Left carpal tunnel release, under local All of the preoperative paperwork including the consent was reviewed today. All the patient's questions were answered. She denies Diabetes, blood thinners, asthma, heart, lung, kidney issues 2. Right carpal tunnel syndrome, mild-moderate Symptoms intermittent, but daily, worse at night 3. Left cubital tunnel syndrome, mild 4. Right cubital tunnel syndrome, mild No complaints at this time Scribed for Kimberli Rodriguez MD by David Miller, medical imaging technician, on 04/15/24 at 3:00 PM, EST. Coding Level of Care Code Est Pt Level 4 (25051) Diagnoses Carpal tunnel syndrome of left wrist G56.02 Carpal tunnel syndrome of right wrist G56.01 Cubital tunnel syndrome on left G56.22 Cubital tunnel syndrome on right G56.21
[2024-04-15 14:51] VITALS: BMI 27.5
== END 2024-04-15 15:10 | disposition home or self-care (01) ==
PROVIDERS: PCP Nurse Practitioner Family; Visit Provider Orthopaedic Surgery
DX: G56.03 Carpal tunnel syndrome, bilateral upper limbs (principal); G56.23 Lesion of ulnar nerve, bilateral upper limbs
CPT/HCPCS: 99024

== ENCOUNTER → 2024-04-15 14:46 | Outpatient (BNVA) | payer OTHER, SELFPAY | PROVIDERS: PCP Nurse Practitioner Family; Visit Provider Orthopaedic Surgery ==

== ENCOUNTER 2024-04-23 09:07 | Day surgery (SDC) | payer OTHER, SELFPAY ==
[2024-04-23 09:25] VITALS: BMI 27.4
[2024-04-23 09:28] VITALS: BP 127/42; PULSE 70; RESP 18; TEMP 36.7; O2SAT 98
--- NOTE | 2024-04-23 10:20 | MHC.SHP ---
Pre-Procedural Eval Section A - 24 Hr Update-Section A only Date of Service: 04/23/24 The patient is an INPATIENT: No Changes since office visit: No Cold of Flu in the past 2 weeks, No New Medical Problems, No Changes in Medication and No Patient answered all questions The patient has been examined within 24 hours of the surgical procedure. The History & Physical has been completed within 30 days and I have reviewed it.: Yes Section B - Complete if H&P > 30 days Chief Complaint: Carpal tunnel syndrome, left upper limb Allergies: Allergies Allergy/AdvReac Type Severity Reaction Status Date / Time No Known Allergies Allergy Verified 04/23/24 09:27 Plan Diagnosis/Plan: Unchanged I have reviewed the history and physical and performed a pertinent physical examination on my patient. No changes have occurred unless specified. Time Spent With Patient Time: Total time managing care of this patient today ____ minutes.
--- NOTE | 2024-04-23 10:21 | W.PM.OPN ---
Operative Note Operative Note Date of Service: 04/23/24 Narrative: Preop diagnosis: 1. Left Carpal tunnel syndrome Postop diagnosis: same Procedure: 1. Left Carpal tunnel release Surgeon: Kimberli Rodriguez MD [facility] [employer] Continuous Process: Omer ROBLERO Anesthesia: local block using 1% lidocaine with epinephrine Findings: Thickened transverse carpal ligament. EBL: Less than 5 mL Specimens: None Complications: None Disposition: Brought to recovery room in stable condition Plan: Follow-up for 10-14 days for wound check and suture removal Indications: The patient is 49 years old, with left carpal tunnel syndrome that has been unresponsive to nonoperative management. The risks and benefits of operative treatment including but not limited to risk of damage to blood vessels, nerves, tendons, infection, persistent pain, persistent symptoms, or possible need for additional surgery were discussed with the patient and the patient wishes to proceed with surgery. Procedure: Once consent was obtained a local block was performed using a combination of 1% lidocaine with epinephrine. The patient was then brought back to the operating suite and placed on the operative table in supine position. The left upper extremity was prepped and draped in a standard surgical fashion. Once assured that we had a good block, a 2.0 cm longitudinal incision was made centered over the carpal tunnel. The incision was made through the skin to the subcutaneous tissues using a #15 blade. Dissection was made down to the level of the transverse carpal ligament with care being taken to protect the palmar cutaneous nerve. Once the transverse carpal ligament was clearly visualized, a longitudinal incision was made in the transverse carpal ligament 1st using a #15 blade, then using tenotomy scissors under direct visualization. Care was taken to look for and protect the motor branch of the median nerve when seen in this area. Once satisfied with our carpal tunnel release the wound was copiously irrigated with normal saline and hemostasis was obtained with a brief period of local pressure. The skin edges were reapproximated with some 5.0 nylon suture material and a sterile dressing was applied. The patient appears to have tolerated the procedure well and with no complications. All digits were well vascularized at the conclusion of the case.
[2024-04-23 10:58] VITALS: BP 123/57; PULSE 79; RESP 15; O2SAT 97
== END 2024-04-23 11:00 | disposition home or self-care (01) ==
PROVIDERS: PCP Nurse Practitioner Family; Visit Provider Orthopaedic Surgery
PROC: (CPT 64721; principal; 2024-04-23 10:00)
DX: G56.02 Carpal tunnel syndrome, left upper limb (principal); R20.0 Anesthesia of skin; J45.909 Unspecified asthma, uncomplicated; M51.27 Other intervertebral disc displacement, lumbosacral region; Z98.890 Other specified postprocedural states
CPT/HCPCS: 64721; J0171; J2003

== ENCOUNTER → 2024-04-23 09:07 | Outpatient (BNV) | payer OTHER, SELFPAY | PROVIDERS: PCP Nurse Practitioner Family; Visit Provider Orthopaedic Surgery | DX: G56.02 Carpal tunnel syndrome, left upper limb (principal) | CPT/HCPCS: 64721 ==

== ENCOUNTER 2024-05-06 09:20 | Outpatient (AMB) | payer OTHER, SELFPAY ==
--- NOTE | 2024-05-06 09:22 | A.OFFVIS_ITS ---
Intake Visit Reasons: PO LT CTR 04/23/24 AR Intake Note: Aaron is a 49 yo right hand dominant female who presents today post operatively s/p left CTR done 04/23/[address] Rodriguez. Patient denies numbness. tingling, or finger locking. Sutures removed in office today and steri strips applied. Allergies No Known Allergies Allergy (Verified 05/06/24 09:31) HPI HPI PO LT CTR 04/23/24 AR: Details: Aaron is a 48 year old right hand dominant woman who returns S/P left carpal tunnel release, DOS: 04/23/24 She says she is doing well and her sensation is now normal in her left hand. She has good relief of her nighttime symptoms and is happy with the results of her surgery. In regards to her right hand, she says she still has numbness in the median nerve distribution. Symptoms intermittent, but daily, worse at night. She says she is not ready to consider surgery for her right side yet. 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 [facility] Medical History Asthma Herniation of intervertebral disc between L5 and S1 Surgical History History of abdominoplasty Hx of tonsillectomy History of partial hysterectomy Family History Father Diabetes Mother Diabetes Hypertension Social History Housing: House Are you a primary veterinarian laboratory animal care to a significant other at home: No Do you presently have visiting nurse or other home services: No Alcohol intake: current Alcohol intake frequency: holidays/special occasions only Patient Tobacco Use Status: Never used Tobacco e-Cigarette/Vaping Use: Never Used Current occupational status: employed 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 Cognitive needs: No Hearing needs: No Vision needs: Yes Review of Systems Const All systems reviewed & are unremarkable except as noted in HPI and below Physical Exam Const General: no acute distress and alert Orientation/consciousness: patient oriented x3 Neuro General: patient oriented x3 Extrem Other: The patient was alert oriented and in no acute distress The incision is healing well with no erythema drainage or evidence of infection. Sutures removed and Steri-Strips applied She can make a fist and extend all her digits Normal sensation to the tips of all digits bilaterally Cap refill is brisk Nerve Conduction Study: IMPRESSION: 1. [id number] bilateral median neuropathy across carpal tunnel. 2. Mild bilateral ulnar neuropathy across cubital tunnel. Taniya Eisenberg MD Psych Appearance: grossly normal Affect: normal affect Attitude: cooperative Assessment & Plan Assessment & Plan (1) Carpal tunnel syndrome of left wrist: Code(s): G56.02 - Carpal tunnel syndrome, left upper limb Category: Medical (2) Carpal tunnel syndrome of right wrist: Code(s): G56.01 - Carpal tunnel syndrome, right upper limb Category: Medical (3) Cubital tunnel syndrome on left: Code(s): G56.22 - Lesion of ulnar nerve, left upper limb Category: Medical (4) Cubital tunnel syndrome on right: Code(s): G56.21 - Lesion of ulnar nerve, right upper limb Category: Medical Plan Assessment & Plan: 1. Left carpal tunnel syndrome, S/P release DOS: 04/23/24 Pre-operatively with dense numbness in the thumb Now with normal sensation and good resolution of her nighttime symptoms The patient appears to be doing well post-operatively I educated her about the post-operative course I discussed activity modifications, she is to lift nothing heavier than a cellphone for the next two weeks She will perform gentle ROM exercises at home She should avoid any underwater activities for the next 5 days She should gently massage about the incision site to reduce the risk of hypersensitivity She can follow up prn 2. Right carpal tunnel syndrome, mild-moderate Symptoms intermittent, but daily, worse at night She says she is not ready to consider surgery at this time I educated her about the risks of delaying treatment She can follow up prn to discuss treatment options 3. Left cubital tunnel syndrome, mild 4. Right cubital tunnel syndrome, mild No complaints at this time Scribed for Kimberli Rodriguez MD by David Miller forensic medical examiner, on 05/06/24 at 9:40 AM, EST. Scribe Plan - Not visible on output: Scribed for Kimberli Rodriguez MD by David Lubanszky, forensic medical examiner, on [ ] at [ ], EST. Coding Level of Care Code Global (35383) Diagnoses Carpal tunnel syndrome of left wrist G56.02 Carpal tunnel syndrome of right wrist G56.01 Cubital tunnel syndrome on left G56.22 Cubital tunnel syndrome on right G56.21
== END 2024-05-06 10:03 | disposition home or self-care (01) ==
LOC: HO.HOS 09:20
PROVIDERS: PCP Nurse Practitioner Family; Visit Provider Orthopaedic Surgery
DX: G56.03 Carpal tunnel syndrome, bilateral upper limbs (principal); G56.23 Lesion of ulnar nerve, bilateral upper limbs
CPT/HCPCS: 99024

== ENCOUNTER → 2024-05-06 09:20 | Outpatient (BNVA) | payer OTHER, SELFPAY | PROVIDERS: PCP Nurse Practitioner Family; Visit Provider Orthopaedic Surgery ==

== ENCOUNTER 2024-07-23 15:16 | Outpatient (REF) | payer OTHER, SELFPAY | END 2024-07-23 15:17 | disposition home or self-care (01) | LOC: HO.MAMMO 15:16 | PROVIDERS: PCP Nurse Practitioner Family; Visit Provider Nurse Practitioner Family | DX: Z12.31 Encounter for screening mammogram for malignant neoplasm of breast (principal) | CPT/HCPCS: 77063; 77067 ==

== ENCOUNTER 2025-03-19 13:23 | Outpatient (AMB) | payer OTHER, SELFPAY ==
[2025-03-19 13:29] VITALS: BP 92/60; PULSE 55; RESP 15; TEMP 36.7; O2SAT 98; BMI 28.3
--- NOTE | 2025-03-19 13:29 | AM.OFFWIN_ITS ---
Intake Vital Signs 03/19/25 13:29 Height 5 ft 2 in Weight 155 lb BMI 28.3 BP 92/60 Blood Pressure Location Lt brachial Position Sitting Respiration 15 Pulse 55 Pulse Source Pulse Oximeter Temp 98.0 F Temp Source Oral Pulse Oximetry (%) 98 Oxygen Delivery Method Room Air Intake Visit Reasons: EP feels like a ball in her throat Intake Note: Pt is here today c/o something stuck in throat: Having a hard time swallow even saliva x3mo. Patient Tobacco Use Status: Never used Tobacco Allergies No Known Allergies Allergy (Verified 03/19/25 13:37) HPI EP feels like a ball in her throat HPI Details This is a 50-year-old patient presents to the walk-in clinic today with a nearly three-month history of a sensation of a lump in her throat. History of tonsillectomy. No pain in the throat or painful swallowing. No fever/chills or weight loss. No pain on the outside of her neck. No history of thyroid problems. Denies GI symptoms. [facility] Medical History Asthma Herniation of intervertebral disc between L5 and S1 Surgical History History of abdominoplasty Hx of tonsillectomy History of partial hysterectomy Family History Father Diabetes Mother Diabetes Hypertension Social History Housing: House Are you a primary inpatient care manager rn to a significant other at home: No Do you presently have visiting nurse or other home services: No Alcohol intake: current Alcohol intake frequency: holidays/special occasions only Patient Tobacco Use Status: Never used Tobacco e-Cigarette/Vaping Use: Never Used Current occupational status: employed 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 Cognitive needs: No Hearing needs: No Vision needs: Yes Review of Systems Const All systems reviewed & are unremarkable except as noted in HPI and below Physical Exam Vital Signs: BMI result Body Mass Index 28.3 Const General: cooperative, healthy appearing, comfortable and no acute distress HEENT Head: Yes normal to inspection General nose exam: Normal external nose present Face and sinus: Yes normal facial exam Mouth: Normal oral and palatal mucosa present Throat: Yes posterior oropharynx normal, Yes uvula midline and Yes tonsils absent Neck Neck: Yes normal visual inspection, Yes full ROM, Yes no lymphadenopathy and Yes trachea midline Thyroid: Thyroid normal Resp Effort & Inspection: normal respiratory effort Auscultation: clear to auscultation bilaterally Cardio Rate: regular rate Rhythm: regular rhythm Skin General skin exam: no rashes or lesions noted Extrem General: Yes capillary refill normal and Yes no clubbing, cyanosis or edema Psych Appearance: grossly normal Mental Status: mental status grossly normal Speech and movement: Normal speech and movement present Assessment & Plan Assessment & Plan (1) Globus sensation: Code(s): R09.A2 - Foreign body sensation, throat Plan: Thyroid palpates normal. No masses or lumps appreciated. Posterior oropharynx normal. Will start her on a PPI, but have her follow up PCP Joseph Esquivel CLIENT ACCOUNT ASSISTANT as scheduled on 04/08. We reviewed indications and use of medication. If she develops pain or difficulty swallowing, she should go to the ED for evaluation. Patient verbalizes understanding and agrees to plan. Medications: New omeprazole 20 mg PO DAILY 30 caps 0RF 30 days R09.A2 - Foreign body sensation, throat Coding Level of Care Code Est Pt Level 4 (62988) Diagnoses Globus sensation R09.A2
--- OUTSIDE RECORDS SUMMARY | 2025-03-19 15:58 | XMS_ITS | Patient Health Record ---
Author Organization [facility] Address [address] [place] [address] Care Team Providers Care Bridge Painter Name Role Phone Joseph Wallis Primary Care Provider Unav ailable Navneet Salas Unavailable [phone] Reason For Referral No Information Medications Medication SIG (Take, Route, Frequency, Duration) Notes Start Date End Date Status Flexeril Not-Taking Baclofen 10 MG 1 tablet with food o r milk Orally Three times a day 05/13/2015 Not-Taking Azithromycin 250 MG 2 tablets on the day, then 1 tablet daily for 4 days Orally Once a day 05/13/2015 Not-Taking predniSONE 20 MG 1 tablet with food o r milk Orally Once a day 05/13/2015 Not-Takin g Diclofenac Potassium 50 MG 1 packet on an empty stomach one time Orally Once a day Not-Taking guaiFENesin AC 100-10 MG/5ML 5 ml Orally every 4 hrs 05/13/2015 Not- Taking Problems No Known Problems Plan Of Treatment No Information Insurance Providers Payer Name Payer Address Payer Phone Subscriber Number Group Number Insured Name Patient Relationship to Insured Coverage Start Date Coverage End Date Family Health Plan [address] [place] [address] [phone] [id number] Aaron Costa Self - patient is the insured Medical (General) History Medical History History ICD Code asthma Herniated disc Constipation Surgical History Surgery Date(Month/Year) tonsillectomy 08/2006 partial hysterectomy 2009 varicose vein stripping 04/2015
== END 2025-03-19 13:54 | disposition home or self-care (01) ==
PROVIDERS: PCP Nurse Practitioner Family; Visit Provider Nurse Practitioner Family
DX: R09.A2 Foreign body sensation, throat (principal)

== ENCOUNTER 2025-05-10 12:52 | Outpatient (AMB) | payer OTHER, SELFPAY ==
[2025-05-10 12:57] VITALS: BP 102/60; PULSE 65; O2SAT 97; BMI 28.9
--- NOTE | 2025-05-10 12:57 | AM.OFFWIN_ITS ---
Intake Vital Signs 05/10/25 12:57 Height 5 ft 2 in Weight 158 lb BMI 28.9 BP 102/60 Blood Pressure Location Lt brachial Position Sitting Pulse 65 Pulse Source Pulse Oximeter Pulse Oximetry (%) 97 Oxygen Delivery Method Room Air Intake Visit Reasons: EP throat discomfort Intake Note: Patient presents with c/o throat discomfort when she swallows anything x few months - was seen last month & prescribed meication but it did not work that well. Patient Tobacco Use Status: Never used Tobacco Allergies No Known Allergies Allergy (Verified 05/10/25 13:00) Medication List - Last Reconciled 05/10/25 by Tarsha Earl NP famotidine 20 mg PO BEDTIME pantoprazole 40 mg PO DAILY HPI HPI Comments History of Present Illness Details 50 y/o Female patient presents to the [facility] clinic with c/o throat discomfort when swallowing anything for the past few months. She was seen last month and prescribed Omeprazole, but reports minimal improvement in symptoms. Denies nausea, vomiting, shortness of breath, chest pain, or wheezing. [facility] Medical History (Updated 05/10/25 @ 14:00 by Tarsha Earl NP) Globus sensation Asthma Herniation of intervertebral disc between L5 and S1 Surgical History History of abdominoplasty Hx of tonsillectomy History of partial hysterectomy Family History Father Diabetes Mother Diabetes Hypertension Social History Housing: House Are you a primary healthcare management to a significant other at home: No Do you presently have visiting nurse or other home services: No Alcohol intake: current Alcohol intake frequency: holidays/special occasions only Patient Tobacco Use Status: Never used Tobacco e-Cigarette/Vaping Use: Never Used Current occupational status: employed 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 Cognitive needs: No Hearing needs: No Vision needs: Yes Review of Systems Const All systems reviewed & are unremarkable except as noted in HPI and below Physical Exam Vital Signs: Last Vital Signs Pulse 65 05/10/25 12:57 BP 102/60 05/10/25 12:57 Pulse Ox 97 05/10/25 12:57 Oxygen Delivery Method Room Air 05/10/25 12:57 BMI result Body Mass Index 28.9 Const Other: Oropharynx clear, no erythema or exudate, no tonsillar enlargement. Mild posterior pharyngeal irritation noted. No visible lesions or masses. General: no acute distress Nutritional Appearance: well nourished Orientation/consciousness: patient oriented x3 HEENT Head: Yes normocephalic Ears: external ears normal General nose exam: Normal external nose present Mouth: moist mucous membranes Throat: Yes tonsils normal and Yes uvula midline Neck Neck: Yes full ROM and Yes no lymphadenopathy Resp Effort & Inspection: normal respiratory effort Auscultation: clear to auscultation bilaterally, no crackles, no rales, no rhonchi and no wheezes Cardio Heart sounds: S1 normal heart sound present and S2 normal heart sound present Neuro General: patient oriented x3, gait normal and moves all extremities Psych Speech and movement: Normal speech and movement present Assessment & Plan Assessment & Plan (1) Globus sensation: Code(s): R09.89 - Other specified symptoms and signs involving the circulatory and respiratory systems Plan: Throat discomfort / Dysphagia (likely GERD-related, rule out esophagitis or other causes) vs GERD ? Suboptimally controlled. Discontinue Omeprazole; start Pantoprazole 40 mg PO daily before breakfast. Recommend GI referral for further evaluation (possible upper endoscopy) if symptoms persist. Continue lifestyle modifications: avoid spicy/acidic foods, caffeine, alcohol, late meals; elevate head of bed. Scheduled Appointment with PCP 05/11/25. Medications: New pantoprazole 40 mg PO DAILY 90 tabs 2RF R09.89 - Other specified symptoms and signs involving the circulatory and respiratory systems famotidine 20 mg PO BEDTIME 90 tabs 2RF R09.89 - Other specified symptoms and signs involving the circulatory and respiratory systems Coding Level of Care Code Est Pt Level 4 (33512) Diagnoses Globus sensation R09.89 Time Spent (min) 20
--- OUTSIDE RECORDS SUMMARY | 2025-05-10 16:18 | XMS_ITS | Patient Health Record ---
Author Organization [facility] Address [address] [place] [address] Care Team Providers Care Drafter Commercial Name Role Phone Joseph Wallis Primary Care Provider Unav ailable Navneet Salas Unavailable [phone] Reason For Referral No Information Medications Medication [...] Date Family Health Plan [address] [place] [address] [id number] Aaron Costa Self - patient is the insured Medical (General) History Medical History History ICD Code asthma Herniated disc Constipation Surgical History Surgery Date(Month/Year) tonsillectomy 08/2006 partial hysterectomy 2009 varicose vein stripping 04/2015
== END 2025-05-10 14:08 | disposition home or self-care (01) ==
PROVIDERS: PCP Nurse Practitioner Family; Visit Provider Nurse Practitioner Family
DX: R09.89 Other specified symptoms and signs involving the circulatory and respiratory systems (principal)